=== PATIENT | male | born 1960 | race Caucasian/White ===

== ENCOUNTER 2016-12-18 05:26 | Observation (INO) | payer MEDICAID ==
[~2016-12-18] VITALS: Ht 174 cm; Wt 81.2 kg
[~2016-12-18 05:26] MED LIST: FLONASE ALLERG9.9 ML; PROTONIX40 M2 PO; SPIRIVA18 MC1 INH; ZESTRIL30 M1 PO
[2016-12-18] MEDS ORDERED: MUPIROCIN22 G2 TP (05:44)
[2016-12-18] MEDS ORDERED: KEFLEX500 M4 PO (05:44)
[2016-12-18 06:08] LABS: URINE APPEARANCE HAZY; URINE BILIRUBIN NEGATIVE (NEG); URINE BLOOD LARGE (NEG); URINE COLOR DARK YELLOW; URINE GLUCOSE (UA) NEGATIVE (NEG); URINE KETONE NEGATIVE (NEG); URINE LEUKOCYTE ESTERASE POSITIVE (NEG); URINE NITRITE NEGATIVE (NEG); URINE PROTEIN MODERATE (NEG)
[2016-12-18 06:18] LABS: URINE RBC 25-35 /[HPF] (0-5)
[2016-12-18 06:19] LABS: URINE BACTERIA 1+
[2016-12-18 06:42] LABS: BLOOD UREA NITROGEN 34 mg/dl (6-24); CALCIUM 9.2 mg/dl (8.5-10.5); CARBON DIOXIDE-VENOUS 26 mmol/L (22-32); CREATININE 1.94 mg/dl (0.60-1.30); GLUCOSE 108 mg/dL (70-110); eGFR VALUE FOR BLACK 43 mL/Min
[2016-12-18 06:58] LABS: ANION GAP 15 mmol/L (0-20); CHLORIDE 98 mmol/l (96-110); SODIUM 135 mmol/L (135-145)
[2016-12-18 07:03] LABS: POTASSIUM 3.8 mmol/L (3.7-5.1)
[2016-12-18] MEDS ORDERED: ZYRTEC10 M7 PO (09:11)
[2016-12-18] MEDS ORDERED: FISH OIL 11000 MG/CA PO (09:11)
[2016-12-18] MEDS ORDERED: MULTIVITAMINS1 EAC7 PO (09:11)
[2016-12-18] MEDS ORDERED: ADVAIR HFA 2301 PUFF INH (09:11)
[2016-12-18] MEDS ORDERED: NORCO 7.5-3251 EACH PO (09:11)
[2016-12-18] MEDS ORDERED: VENTOLIN HFA18 G2 INH (09:12)
[2016-12-18] MEDS ORDERED: PATANASE30.5 G1 (09:12)
[2016-12-19 06:23] LABS: BASO % 0.3 % (0-2); EOS % 0.3 % (0-7); HGB-HEMOGLOBIN 11.2 gm/dl (13.5-17.0); IMMATURE GRANULOCYTES ABSOLUTE 0.03 tho/cmm (0-0.03); IMMATURE GRANULOCYTES PERCENT 0.3 % (0-0.3); LYMPH % 24.7 % (20-45); LYMPH ABSOLUTE COUNT 2.4 tho/cmm (0.8-4.5); MCH (MEAN CORPUSCULAR HGB) 30.2 pg (28.0-32.0); MCHC MEAN CORPUSCULAR HGB CONC 32.9 % (32.0-36.0); MCV (MEAN CELL VOLUME) 91.6 fl (82.0-96.0); MEAN PLATELET VOLUME 9.5 cmc (9.4-12.4); MONO % 13.8 % (0-12); MONOCYTE ABSOLUTE COUNT 1.3 tho/cmm (0.0-1.2); NEUTROPHIL ABSOLUTE COUNT 5.8 tho/cmm (1.6-8.0); NEUTROPHIL-AUTOMATED 5.8 tho/cmm (1.6-8.0); NEUTROPHILS % 60.6 % (40-80); PLATELET COUNT 188 tho/cmm (150-450); RED BLOOD COUNT 3.71 mil/cmm (4.40-5.70); RED CELL DISTRIBUTION WIDTH 13.9 % (12.4-16.4); WHITE BLOOD COUNT 9.6 tho/cmm (4.0-10.0)
[2016-12-19 06:36] LABS: ANION GAP 7 mmol/L (0-20); BLOOD UREA NITROGEN 12 mg/dl (6-24); CALCIUM 8.1 mg/dl (8.5-10.5); CARBON DIOXIDE-VENOUS 30 mmol/L (22-32); CHLORIDE 108 mmol/l (96-110); GLUCOSE 98 mg/dL (70-110); POTASSIUM 3.9 mmol/L (3.7-5.1); SODIUM 141 mmol/L (135-145); eGFR VALUE FOR BLACK >90 mL/Min
[2016-12-19 06:37] LABS: CREATININE 0.73 mg/dl (0.60-1.30)
[2016-12-19] MEDS ORDERED: MACROBID 100 M100 M1 PO (08:50)
[2016-12-19] MEDS ORDERED: XANAX0.25 M1 PO (08:50)
[2016-12-19] MEDS ORDERED: FLOMAX0.4 M1 PO (08:50)
== END 2016-12-19 13:20 ==
LOC: EDMED 05:26 → EMR2 09:09 → CAR1 09:09
PROVIDERS: Emergency Medicine; ADMIT Family Medicine
DX: R33.9 Retention of urine, unspecified (principal); N39.0 Urinary tract infection, site not specified; N17.9 Acute kidney failure, unspecified; J44.9 Chronic obstructive pulmonary disease, unspecified; F41.9 Anxiety disorder, unspecified; I10 Essential (primary) hypertension; Z98.890 Other specified postprocedural states; Z79.899 Other long term (current) drug therapy; Z87.891 Personal history of nicotine dependence
CPT/HCPCS: J0696; J7030